=== PATIENT | female | born 1950 | race Caucasian/White ===

== ENCOUNTER 2019-04-28 03:56 | Emergency (ER) | payer OTHER ==
[~2019-04-28] VITALS: Ht 165.1 cm; Wt 64.4 kg
[2019-04-28 04:03] VITALS: BP_SYST 165
--- NOTE | 2019-04-28 04:03 | NUR ---
Patient to ER bed 7 to gown for evaluation. Side rails up.
[2019-04-28] MEDS ORDERED: NACL 0.9% 1,000 ML IV ONE (04:08)
--- NOTE | 2019-04-28 04:08 | NUR ---
ER Dr. Judd at bedside examining patient.
[2019-04-28] MEDS ORDERED: KETOROLAC TROMETHAMINE 30 MG VIAL IVP ONE (04:15)
[2019-04-28] MEDS ORDERED: ONDANSETRON HCL 4 MG/2 ML VIAL IVP ONE (04:15)
--- NOTE | 2019-04-28 04:27 | NUR ---
patient went to radiology in stable condition.
[2019-04-28 04:36] LABS: BASOPHILS # (AUTO) 0.1 K/uL (0.0-0.2); BASOPHILS % (AUTO) 0.6 % (0.0-2.0); EOSINOPHILS # (AUTO) 0.7 K/uL (0.0-0.4); EOSINOPHILS % (AUTO) 7.3 % (0.0-4.0); HEMATOCRIT 41.5 % (36-48); LYMPHOCYTES # (AUTO) 3.7 K/uL (1.0-5.5); LYMPHOCYTES % (AUTO) 41.1 % (20.5-51.5); MEAN CORPUSCULAR HEMOGLOBIN 31 pg (27-31); MEAN CORPUSCULAR HGB CONC 34 % (32-36); MEAN CORPUSCULAR VOLUME 91 fL (79.0-98.0); MONOCYTES # (AUTO) 0.9 K/uL (0.0-1.0); MONOCYTES % (AUTO) 9.6 % (1.7-9.3); NEUTROPHILS # (AUTO) 3.7 K/uL (1.8-7.7); NEUTROPHILS % (AUTO) 41.4 % (40.0-70.0); PLATELET COUNT (AUTO) 419 K/uL (130-430); RED BLOOD CELL COUNT(AUTO) 4.56 MIL/uL (4.2-6.2); RED CELL DISTRIBUTION WIDTH 13.6 % (9.0-15.0)
--- NOTE | 2019-04-28 04:36 | NUR ---
patient returned from radiogoly in stable condition.
[2019-04-28 04:41] LABS: CALCIUM 8.8 mg/dL (8.4-11.0); CREATININE 0.96 mg/dL (0.55-1.30); POTASSIUM 4.4 mmol/L (3.5-5.1)
[2019-04-28 04:46] LABS: ALBUMIN 3.6 g/dL (3.4-4.8); TOTAL BILIRUBIN 0.3 mg/dL (0.0-1.0)
--- NOTE | 2019-04-28 04:46 | NUR ---
Urine was collected and sent to lab.
[2019-04-28 04:50] LABS: BILIRUBIN,URINE NEGATIVE (NEGATIVE); BLOOD, URINE NEGATIVE (NEGATIVE); CLARITY/URINE CLEAR (CLEAR); COLOR,URINE YELLOW (YELLOW); GLUCOSE,URINE NEGATIVE (NEGATIVE); KETONES,URINE NEGATIVE (NEGATIVE); LEUKOCYTE ESTERASE ,URINE NEGATIVE (NEGATIVE); NITRITE, URINE NEGATIVE (NEGATIVE); PH,URINE 5.5 (5.0-8.0); PROTEIN URINE NEGATIVE (NEGATIVE); UROBILINOGEN,URINE 0.2 (0.2-1.0)
[2019-04-28] MEDS ORDERED: fentaNYL CITRATE/PF 100 MCG/2 ML AMP IVP ONE ×2 (05:15→06:45)
[2019-04-28] MEDS ORDERED: DIPHENHYDRAMINE INJ 50 MG/ML VIAL IVP ONE (05:15)
--- NOTE | 2019-04-28 05:29 | NUR ---
Medications were given, pt tolerated well. No adverse reaction, will continue to monitor.
--- NOTE | 2019-04-28 06:37 | NUR ---
patient reports pain is slowly creeping up, current pain level is 5/10. Dr. Dutch darby.
[2019-04-28] MEDS ORDERED: ASPI-1155 PO (07:07)
[2019-04-28] MEDS ORDERED: SIMV20TA2 PO (07:07)
[2019-04-28] MEDS ORDERED: LEVO75TA7 PO (07:07)
[2019-04-28] MEDS ORDERED: CHOL100038 PO (07:08)
--- NOTE | 2019-04-28 07:08 | NUR ---
Medication reconciliation completed with information provided by patient. Any prior medication reconciliation on file was reviewed and corrected.
--- NOTE | 2019-04-28 07:15 | NUR ---
Report given to JULES Huynh. All care endorsed.
--- NOTE | 2019-04-28 07:17 | NUR ---
Received report from [place] VICENTE. Patient is currently in stable condition. Patient reports no pain at the moment. Will continue to monitor.
--- NOTE | 2019-04-28 08:05 | NUR ---
pt reports 0/10 left flank pain at the moment.
[2019-04-28 09:10] VITALS: BP_SYST 126
--- NOTE | 2019-04-28 09:10 | NUR ---
Patient given written and verbal discharge instructions and verbalizes understanding. ER MD discussed with patient the results and treatment provided. Patient in stable condition. ID arm band removed. IV catheter removed intact and dressing applied, no active bleeding. Rx of Compazine, tramadol given. Patient educated on pain management and to follow up with PMD. Pain Scale 0/10. Opportunity for questions provided and answered. Medication side effect fact sheet provided.
== END 2019-04-28 09:10 | disposition home or self-care (01) ==
LOC: SED 03:56
DX: N23 Unspecified renal colic (principal); I10 Essential (primary) hypertension
CPT/HCPCS: 36415; 74176; 80053; 81003; 85025; 88300; 96374; 96375; 99284; J1200; J1885; J2405; J3010; J7030

== ENCOUNTER 2021-08-19 10:16 | Emergency (ER) | payer OTHER ==
[~2021-08-19] VITALS: Ht 165.1 cm; Wt 63.0 kg
[~2021-08-19 10:16] MED LIST: ASPI-1155 PO; CHOL100038 PO; LEVO75TA7 PO; SIMV20TA2 PO
[2021-08-19 10:22] VITALS: BP_SYST 145
--- NOTE | 2021-08-19 10:22 | NUR ---
Patient to room 4. Report received per smelter charger. Patient reporting right foot pain since yesterday; pain in heel when patient steps down. Pain /10. Awaiting MD evaluation. Will continue to monitor.
--- NOTE | 2021-08-19 10:27 | NUR ---
Dr Reed to bedside for evaluation.
--- NOTE | 2021-08-19 10:38 | NUR ---
Xray being done at bedside
--- NOTE | 2021-08-19 11:40 | NUR ---
Dr Reed at bedside to re-evaluate patient
[2021-08-19] MEDS ORDERED: NAPR-690 PO (12:05)
[2021-08-19 12:28] VITALS: BP_SYST 145
--- NOTE | 2021-08-19 12:33 | NUR ---
Patient given written and verbal discharge instructions and verbalizes understanding. ER MD discussed with patient the results and treatment provided. Patient in stable condition. ID arm band removed. Rx of Naproxen given. Patient educated on pain management and to follow up with PMD. Pain improved. Opportunity for questions provided and answered. Medication side effect fact sheet provided.
== END 2021-08-19 12:28 | disposition home or self-care (01) ==
LOC: SED 10:16
DX: M79.671 Pain in right foot (principal); M25.571 Pain in right ankle and joints of right foot; Z79.899 Other long term (current) drug therapy
CPT/HCPCS: 99283